=== PATIENT | female | born 1955 | race Caucasian/White ===

== ENCOUNTER 2017-02-07 05:19 | Day surgery (SDC) | payer OTHER ==
[~2017-02-07] VITALS: Ht 174 cm; Wt 82.1 kg
[~2017-02-07 05:19] MED LIST: ALPRAZOLAM0.5 MG PO; ANUCORT-HC25 MG PR; ASPIR 8181 M1 PO; ATORVASTATIN CA40 MG PO; CARDIZEM CD120 M1 PO; CENTRUM SILVER1 EAC3 PO; CITRACAL + D M1 EACH PO; CITRACAL W/V1 TABLE1 PO; COUMADIN2.5 MG PO; COUMADIN4 MG PO; COUMADIN5 MG PO; COUMADIN6 MG PO; CYANOCOBALAM1000 MCG PO; DENAVIR1.5 GM TP; DIGEST ADV INT1 EACH PO; DILAUDID4 MG PO; DIOVAN160 MG PO; DULERA 100 MCG/13 GM IH; ERGOCALCIF50000 UNIT PO; FIBER GUMMIES2.5 GM PO; FLEXERIL10 MG PO; FLUOXETINE HCL20 MG PO; HYCODAN SYRUP480 ML PO; HYDROCHLOROTHIA25 MG PO; IMDUR60 MG PO; IMITREX100 MG PO; ISOSORBIDE MONO30 MG PO; JANUVIA25 M1 PO; LASIX20 MG PO; LIPITOR40 MG PO; NITROSTAT0.4 MG SL; OMEPRAZOLE40 M1 PO; ONGLYZA2.5 MG PO; PENNSAID2 GM TP; PERCOCET 10/1 TABLET PO; PERCOCET 7.51 TABLET PO; POTASSIUM CHLO20 ME2 PO; PREDNISONE10 MG PO; PRILOSEC40 MG; PRILOSEC40 MG PO; PROBIOTIC DIGE1 EACH PO; PROMETHAZINE12.5 M1 PO; PROVENTIL,2.5 MG/3 M IH; RANITIDINE HCL300 M1 PO; SENOKOT S,PE1 TABLET PO; VENTOLIN HFA18 GM IH; VITAMIN B12-FO1 EACH PO; VITAMIN D250000 UNIT PO; VITAMIN D35000 UNIT PO; VITAMIN D5000 INTUN PO; WARFARIN SODIUM1 MG PO; WARFARIN SODIUM5 MG PO; XANAX0.25 MG PO; XIFAXAN200 MG PO; ZESTRIL10 MG PO; ZITHROMAX500 MG PO; [UNRECOGNIZED DRUG - OTHER] TP
[2017-02-07 06:07] VITALS: BP 136/91
[2017-02-07 06:34] LABS: INTER. NORMALIZED RATIO 1.5; PROTHROMBIN TIME 16.6 SEC (10.2-12.9)
[2017-02-07] MEDS ORDERED: ULTRAM50 MG PO (09:41)
[2017-02-07 10:18] VITALS: BP 116/66
[2017-02-07 11:13] VITALS: BP 120/74
[2017-02-07 12:01] VITALS: BP 121/68
== END 2017-02-07 12:20 | disposition home or self-care (01) ==
LOC: SDC 05:19
PROVIDERS: Surgery
DX: K80.10 Calculus of gallbladder with chronic cholecystitis without obstruction (principal); D18.09 Hemangioma of other sites; R11.2 Nausea with vomiting, unspecified; I10 Essential (primary) hypertension; F41.8 Other specified anxiety disorders; K21.0 Gastro-esophageal reflux disease with esophagitis; J45.909 Unspecified asthma, uncomplicated; E78.4 Other hyperlipidemia; E11.9 Type 2 diabetes mellitus without complications; Z79.01 Long term (current) use of anticoagulants; Z86.718 Personal history of other venous thrombosis and embolism; Z86.72 Personal history of thrombophlebitis; Z88.0 Allergy status to penicillin
CPT/HCPCS: 74300; 85610; 88304; 88305; J0330; J1100; J1170; J2405; J2710; J3010; Q0175; S0020

== ENCOUNTER 2017-10-01 09:55 | Day surgery (SDC) | payer OTHER ==
[~2017-10-01] VITALS: Ht 175.3 cm; Wt 88.0 kg
[~2017-10-01 09:55] MED LIST changes: +ATORVASTATIN CA10 MG PO; +FUROSEMIDE20 MG PO; +MIRALAX17 GM PO; +POTASSIUM CHLO10 ME3 PO; +SYMBICORT60 INHALAT IH; +TRAZODONE HCL50 MG PO; +ULTRAM50 MG PO
== END 2017-10-01 17:25 | disposition home or self-care (01) ==
LOC: CATH 09:55
DX: R07.9 Chest pain, unspecified (principal); R68.84 Jaw pain; I25.10 Atherosclerotic heart disease of native coronary artery without angina pectoris; I25.84 Coronary atherosclerosis due to calcified coronary lesion; Z86.718 Personal history of other venous thrombosis and embolism; Z86.711 Personal history of pulmonary embolism; Z79.01 Long term (current) use of anticoagulants; Z95.828 Presence of other vascular implants and grafts; I11.0 Hypertensive heart disease with heart failure; E78.5 Hyperlipidemia, unspecified; E11.9 Type 2 diabetes mellitus without complications; G89.29 Other chronic pain; K22.4 Dyskinesia of esophagus
CPT/HCPCS: 93005; C1769; C1887; J0153; J1644; J2250; J3010; J7040

== ENCOUNTER 2017-11-08 20:36 | Inpatient (IN) | payer OTHER ==
[~2017-11-08] VITALS: Ht 175.3 cm; Wt 92.7 kg
[~2017-11-08 20:36] MED LIST changes: -COUMADIN4 MG PO; +KLOR-CON M1010 MEQ PO; -PERCOCET 10/1 TABLET PO; +PERCOCET 5/31 TABLET PO; -POTASSIUM CHLO10 ME3 PO
[2017-11-08 21:06] LABS: HEMATOCRIT 34.7 % (36.0-46.0); HEMOGLOBIN 12.2 G/DL (11.9-15.5); MCH 31.4 PG (29.0-34.0); MCHC 35.2 G/DL (30.0-36.0); MCV 89.4 FL (83-99); PLATELET COUNT 282 K/uL (156-360); RBC DIS.WIDTH-CV 12.6 % (11.8-14.6); RBC DIS.WIDTH-SD 41.2 % (39-53); RED BLOOD COUNT 3.88 M/uL (3.80-5.20); WHITE BLOOD COUNT 8.1 K/uL (4.1-10.2)
[2017-11-08 21:16] LABS: CHLORIDE 105 mEq/L (99-109); POTASSIUM 3.3 mEq/L (3.7-5.4); SODIUM 141 mEq/L (136-147)
[2017-11-08 21:18] LABS: GLUCOSE 128 mg/dL (70-99)
[2017-11-08 21:22] LABS: GFR ESTIMATE (CALCULATED) > 59 mL/min/
[2017-11-08 21:23] LABS: UREA NITROGEN (BUN) 12 mg/dL (9-23)
[2017-11-08 21:30] LABS: TROP-I INTERPRETATION NEGATIVE; TROPONIN-I < 0.01 ng/mL (0.0-0.30)
[2017-11-09] MEDS ORDERED: FIORICET,ESG1 TABLET PO (01:30)
[2017-11-09] MEDS ORDERED: DENAVIR1.5 GM TP (01:30)
[2017-11-09] MEDS ORDERED: PHENERGAN-CODE120 ML PO (01:30)
[2017-11-09] MEDS ORDERED: VITAMIN B-2100 MG PO (01:31)
[2017-11-09 02:21] VITALS: BP 119/75
[2017-11-09 03:11] LABS: TROP-I INTERPRETATION NEGATIVE; TROPONIN-I < 0.01 ng/mL (0.0-0.30)
[2017-11-09 05:36] LABS: INTER. NORMALIZED RATIO 2.5
[2017-11-09 05:38] LABS: BASOPHIL (%) 0.6 % (0-1); BASOPHIL COUNT 0.1 K/uL (0-0.1); EOSINOPHIL (%) 0.4 % (0-5); HEMATOCRIT 36.6 % (36.0-46.0); HEMOGLOBIN 12.2 G/DL (11.9-15.5); IMMATURE GRANULOCYTE (%) 0.3 % (0.0-0.7); LYMPHOCYTE (%) 14.2 % (15-42); LYMPHOCYTE COUNT 1.1 K/uL (1.0-2.8); MCH 30.1 PG (29.0-34.0); MCHC 33.3 G/DL (30.0-36.0); MCV 90.4 FL (83-99); MONOCYTE (%) 1.5 % (3-12); MONOCYTE COUNT 0.1 K/uL (0-0.8); NEUTROPHIL COUNT 6.5 K/uL (1.8-6.4); PLATELET COUNT 266 K/uL (156-360); RBC DIS.WIDTH-CV 12.5 % (11.8-14.6); RBC DIS.WIDTH-SD 41.7 % (39-53); RED BLOOD COUNT 4.05 M/uL (3.80-5.20); WHITE BLOOD COUNT 7.8 K/uL (4.1-10.2)
[2017-11-09 06:00] LABS: CHLORIDE 101 MEQ/L (99-109); GFR ESTIMATE (CALCULATED) > 59 mL/min/; POTASSIUM 3.4 MEQ/L (3.7-5.4); SODIUM 137 MEQ/L (136-147); UREA NITROGEN (BUN) 12 mg/dL (9-23)
[2017-11-09 06:03] LABS: GLUCOSE 224 mg/dL (70-99)
[2017-11-09 07:46] VITALS: BP 130/60
[2017-11-09 08:46] LABS: THYROTROPIN (TSH) 1.7 MIU/L (0.4-5.5)
[2017-11-09 09:49] LABS: COMMENTS - BLOOD GASES A+C+; DEVICE NC; O2 FLOW 1 L/MIN; SITE LR
[2017-11-09 09:50] LABS: BICARBONATE 20.9 mEq/L (22-26); CARBOXY HGB 1.5 % (0-5); METHEMOGLOBIN 1.4 % (0-1.5); PCO2 30 mm Hg (35-45); PO2 57 mm Hg (80-100); pH 7.45 (7.35-7.45)
[2017-11-09 11:05] VITALS: BP 120/79
[2017-11-09 15:23] VITALS: BP 127/74
[2017-11-09 19:00] VITALS: BP 110/61
[2017-11-09 23:20] VITALS: BP 137/62
[2017-11-10 04:19] VITALS: BP 116/69
[2017-11-10 07:45] VITALS: BP 109/71
[2017-11-10 09:34] LABS: INTER. NORMALIZED RATIO 2.3
[2017-11-10 11:15] VITALS: BP 132/67
[2017-11-10 15:52] VITALS: BP 123/59
[2017-11-10 19:00] VITALS: BP 105/64
[2017-11-10 20:15] LABS: CHLORIDE 102 MEQ/L (99-109); POTASSIUM 3.8 MEQ/L (3.7-5.4); SODIUM 135 MEQ/L (136-147)
[2017-11-10 20:21] LABS: CREATININE 1.2 MG/DL (0.6-1.3); GFR ESTIMATE (CALCULATED) 48 mL/min/; GLUCOSE 257 mg/dL (70-99)
[2017-11-10 20:25] LABS: UREA NITROGEN (BUN) 31 mg/dL (9-23)
[2017-11-11] VITALS (7 sets, daily range): BP systolic 97–127; BP diastolic 53–73
[2017-11-11 05:44] LABS: INTER. NORMALIZED RATIO 2.8
[2017-11-11 08:32] LABS: HEMATOCRIT 34.9 % (36.0-46.0); HEMOGLOBIN 11.8 G/DL (11.9-15.5); MCH 30.6 PG (29.0-34.0); MCHC 33.8 G/DL (30.0-36.0); MCV 90.6 FL (83-99); PLATELET COUNT 331 K/uL (156-360); RBC DIS.WIDTH-CV 13.4 % (11.8-14.6); RBC DIS.WIDTH-SD 44.2 % (39-53); RED BLOOD COUNT 3.85 M/uL (3.80-5.20); WHITE BLOOD COUNT 20.1 K/uL (4.1-10.2)
[2017-11-11 08:38] LABS: CHLORIDE 102 MEQ/L (99-109); SODIUM 135 MEQ/L (136-147)
[2017-11-11 08:43] LABS: CREATININE 1.2 MG/DL (0.6-1.3); GFR ESTIMATE (CALCULATED) 48 mL/min/; GLUCOSE 220 mg/dL (70-99); UREA NITROGEN (BUN) 36 mg/dL (9-23)
[2017-11-12 03:35] VITALS: BP 141/73
[2017-11-12 05:47] LABS: INTER. NORMALIZED RATIO 3.3
[2017-11-12 08:52] VITALS: BP 127/89
[2017-11-12 09:10] LABS: CHLORIDE 105 mEq/L (99-109); POTASSIUM 3.9 mEq/L (3.7-5.4); SODIUM 138 mEq/L (136-147)
[2017-11-12 09:12] LABS: GLUCOSE 216 mg/dL (70-99)
[2017-11-12 09:16] LABS: GFR ESTIMATE (CALCULATED) > 59 mL/min/
[2017-11-12 09:17] LABS: UREA NITROGEN (BUN) 25 mg/dL (9-23)
[2017-11-12] MEDS ORDERED: MYCOSTATIN 100,60 ML PO (10:50)
[2017-11-12] MEDS ORDERED: SPIRIVA RESPIMAT4 GM IH (10:54)
[2017-11-12] MEDS ORDERED: LEVAQUIN750 MG PO (10:55)
[2017-11-12] MEDS ORDERED: DUONEB 2.5-0.5 M3 ML AEROSOL (10:56)
== END 2017-11-12 13:34 | disposition home or self-care (01) | DRG 202 ==
LOC: EME 20:36 → ENRESERV 11-09 01:17 → EDOF 11-09 01:17 → ENRESERV 11-09 01:26 → 4SOUTH 11-09 01:57
PROVIDERS: Hospitalist; Internal Medicine; Nurse Practitioner Adult Health; Nurse Practitioner Family
PROC: 5A09357 Assistance with Respiratory Ventilation, Less than 24 Consecutive Hours, Continuous Positive Airway Pressure (ICD-10-PCS; principal; 2017-11-09)
DX: J45.901 Unspecified asthma with (acute) exacerbation (principal); J96.01 Acute respiratory failure with hypoxia; E11.65 Type 2 diabetes mellitus with hyperglycemia; I27.20 Pulmonary hypertension, unspecified; J20.9 Acute bronchitis, unspecified; E87.6 Hypokalemia; J98.11 Atelectasis; I10 Essential (primary) hypertension; E78.5 Hyperlipidemia, unspecified; I25.10 Atherosclerotic heart disease of native coronary artery without angina pectoris; K21.9 Gastro-esophageal reflux disease without esophagitis; K22.4 Dyskinesia of esophagus; G47.33 Obstructive sleep apnea (adult) (pediatric); F41.9 Anxiety disorder, unspecified; G43.909 Migraine, unspecified, not intractable, without status migrainosus; M19.90 Unspecified osteoarthritis, unspecified site; Z96.643 Presence of artificial hip joint, bilateral; Z79.01 Long term (current) use of anticoagulants; Z79.51 Long term (current) use of inhaled steroids; Z86.711 Personal history of pulmonary embolism; Z86.718 Personal history of other venous thrombosis and embolism; Z87.11 Personal history of peptic ulcer disease
CPT/HCPCS: 36415; 36600; 71046; 71275; 80048; 82803; 82948; 83880; 84443; 84484; 85025; 85027; 85610; 87040; 87502; 93005; 94640; 94640 76; 94668; 94760; 94799; 99202; 99281; 99284; J1815; J1940; J1956; J2920; J7030; J7512; Q0169